=== PATIENT | female | born 1960 | race Caucasian/White ===

== ENCOUNTER → 2018-02-17 | Outpatient (CLI) | payer OTHER ==
[~2018-02-17] MED LIST: NOCURR
[2018-02-17 15:00] LABS: APPEARANCE,URINE CLOUDY (CLEAR); BILIRUBIN,URINE NEGATIVE (NEGATIVE); GLUCOSE, URINE (UA) NEGATIVE (NEGATIVE); KETONES,URINE NEGATIVE (NEGATIVE); LEUKOCYTE ESTERASE ,URINE LARGE (NEGATIVE); NITRATE,URINE NEGATIVE (NEGATIVE); OCCULT BLOOD,URINE TRACE (NEGATIVE); PROTEIN,URINE NEGATIVE (NEGATIVE); UROBILINOGEN,URINE 0.2 mg/dL (<=1.0)
[2018-02-17 15:29] LABS: BACTERIA,URINE Few /HPF (None Seen); RBC,URINE 0-2 /HPF (0-2); SQUAMOUS EPITHELIAL CELL,UR Few /LPF (None Seen)
== END | disposition home or self-care (01) ==
LOC: LABPV 13:14
PROVIDERS: ATTEND Internal Medicine Infectious Disease
DX: E11.9 Type 2 diabetes mellitus without complications (principal); Z83.3 Family history of diabetes mellitus
CPT/HCPCS: 87086

== ENCOUNTER → 2019-02-10 | Outpatient (CLI) | payer OTHER ==
[2019-02-14 05:20] LABS: RUBEOLA (MEASLES) IGG >300.0 AU/mL (Immune >16.4)
== END | disposition home or self-care (01) ==
LOC: LABMN 17:15
PROVIDERS: ATTEND Internal Medicine
DX: Z02.1 Encounter for pre-employment examination (principal)
CPT/HCPCS: 86706; 86735; 86762; 86765; 86787

== ENCOUNTER 2020-01-02 04:45 | Day surgery (SDC) | payer OTHER ==
[~2020-01-02] VITALS: Ht 147.3 cm; Wt 68.2 kg
[~2020-01-02 04:45] MED LIST changes: +MOXIFLOXACIN HCL 0.5% 3 ML OPHTHALMIC SOLUTION ONE; -NOCURR; +PHENYLEPHRINE HCL 2.5% 2 ML OPHTHALMIC SOLUTION ONE; +TETRACAINE HCL/PF 0.5% 4 ML OPHTHALMIC SOLUTION ONE
[2020-01-02] MEDS ORDERED: TETRACAINE HCL/PF 0.5% 4 ML OPHTHALMIC SOLUTION OD ONE (05:00)
[2020-01-02] MEDS ORDERED: RINGERS SOLUTION,LACTATED 500 ML IV ONE (05:00)
[2020-01-02] MEDS ORDERED: PHENYLEPHRINE HCL 2.5% 2 ML OPHTHALMIC SOLUTION OD ONE (05:00)
[2020-01-02] MEDS ORDERED: MOXIFLOXACIN HCL 0.5% 3 ML OPHTHALMIC SOLUTION OD ONE (05:00)
[2020-01-02] MEDS ORDERED: BALANCED SALT 15 ML OPHTHALMIC IRRIG.SOLN ONE (06:03)
[2020-01-02] MEDS ORDERED: LIDOCAINE/PF 1% 2 ML VIAL ONE (06:03)
[2020-01-02] MEDS ORDERED: EPINEPHrine 1:1,000 [1 MG/ML] AMP ONE (06:03)
[2020-01-02] MEDS ORDERED: NEOMYCIN/POLYMYXIN B/DEXAMETH 3.5 GM OPHTHALMIC OINTMENT ONE (06:03)
[2020-01-02] MEDS ORDERED: POVIDONE-IODINE 10% 15 ML SOLUTION UD ONE (06:04)
[2020-01-02] MEDS ORDERED: ACETAMINOPHEN 325 MG TABLET PO PRN (07:00)
[2020-01-02] MEDS ORDERED: MitoMYcin 0.2 MG/VIAL KIT FOR OPHTHALMIC USE OD ONE ×2 (07:00→07:15)
[2020-01-02] MEDS ORDERED: PrednisoLONE ACETATE 1% 5 ML OPHTHALMIC SUSPENSION ONE (07:56)
[2020-01-02] MEDS ORDERED: FentaNYL CITRATE-PF 100 MCG/2 ML VIAL IVP ONE (12:00)
[2020-01-02] MEDS ORDERED: MIDAZOLAM HCL 2 MG/2 ML VIAL IVP ONE (12:00)
== END 2020-01-02 08:40 | disposition home or self-care (01) ==
LOC: SURGERY 04:45
PROVIDERS: ATTEND Ophthalmology
DX: H11.001 Unspecified pterygium of right eye (principal); Z88.2 Allergy status to sulfonamides; Z88.0 Allergy status to penicillin; Z72.89 Other problems related to lifestyle; Z98.890 Other specified postprocedural states
CPT/HCPCS: 65426; 87426; 93005; J2250; J3010; J3490; J0171

== ENCOUNTER 2022-10-27 13:11 | Emergency (ER) | payer OTHER ==
[~2022-10-27] VITALS: Ht 147.3 cm; Wt 68.2 kg
[2022-10-27 13:20] VITALS: TEMP 97.6
[2022-10-27 15:11] VITALS: BP 155/77; PULSE 104; RESP 19
[2022-10-27] MEDS ORDERED: ACETAMINOPHEN 325 MG TABLET PO ONE (16:00)
== END 2022-10-27 16:06 | disposition home or self-care (01) ==
LOC: EMS 13:11
DX: H10.213 Acute toxic conjunctivitis, bilateral (principal); J68.9 Unspecified respiratory condition due to chemicals, gases, fumes and vapors; Z88.0 Allergy status to penicillin; Z88.2 Allergy status to sulfonamides
CPT/HCPCS: 99282; Z7502; Z7610